=== PATIENT | female | born 1990 | race Caucasian/White ===

== ENCOUNTER 2016-09-03 16:13 | Inpatient (IN) | payer OTHER ==
--- NOTE | ~2016-09-03 | PN ---
Unit #: [id number] #: [id number] Patient: KENYON MIX [id number] [facility] [address] [place] [address] [id number] MR#: [id number] NAME: KENYON MIX ROOM: P212 Age: 25 Sex: F Admission Date: 09/04/2016 : 1990 Attending Physician: Marv Harris M.D. Admitting Physician: Marv Harris M.D. Primary Care Physician: Primary Care Physician Kirti TANG PROGRESS NOTES DATE 09/05/2016 DISCUSSION The patient is abed and appears to be quite ill though she denies abuse of any psychoactive substances which could specifically be causing these issues. We have put her on a CIWA protocol but she has not really been scoring to require any such medication. I have encouraged her to increase her participation within the therapeutic milieu. Dictated by... Marv Harris M.D. CB/susan TD: 09/05/2016 15:47 JOB #: [id number] [facility] PROGRESS NOTES Page 1 of 1 X Marv Harris MD PROGRESS NOTE
--- NOTE | ~2016-09-03 | PA ---
Unit #: [id number] #: [id number] Patient: KENYON MIX [id number] [facility] [address] [place] [address] [id number] I MR#: [id number] NAME: KENYON MIX ROOM: P212 Age: 25 Sex: F Admission Date: 09/04/2016 : 1990 Date of Assessment: 09/04/2016 Attending Physician: Marv Harris M.D. Admitting Physician: Marv Harris M.D. Primary Care Physician: Primary Care Physician No PSYCHIATRIC ASSESSMENT IDENTIFYING INFORMATION The patient is a 25-year-old white female with a history of methamphetamine abuse admitted after she had exhibited bizarre behavior at [facility]. INFORMANT(S) Patient. RELIABILITY Good. CHIEF COMPLAINT None given. HISTORY OF PRESENT ILLNESS The patient is a 25-year-old single white female with a long history of methamphetamine abuse. The patient reports former IV use but reports that she has not used intravenously in some time. She presented at [facility] yesterday and exhibited bizarre behavior complaining that she had "stolen someone else's dope" and was in danger. She was also reporting increasing paranoia. Ten minutes into her evaluation, the patient had eloped from the emergency room and was found by police darting into traffic and she was brought back into the hospital and brought to this facility. When seen today, the patient denies recollection of this episode and is denying suicidal or homicidal ideation but does report increasing paranoia related to her methamphetamine use. She also admits to abuse of illicitly obtained alprazolam. The patient has been homeless secondary to substance use for some time. PAST PSYCHIATRIC HISTORY As above. The patient denies prior chemical dependence or other psychiatric treatment. FAMILY HISTORY The patient denies family history of psychiatric illness or substance abuse. SOCIAL HISTORY The patient is currently homeless. MEDICAL HISTORY Noncontributory. Unit #: [id number] #: [id number] Patient: KENYON MIX MEDICATION HISTORY None. ALLERGIES None. SUBSTANCE ABUSE HISTORY Substance use history as noted previously. MENTAL STATUS EXAM At this time, reveals the patient to be a thin, heavily tattooed white female appearing her stated age. She is in no apparent physical distress at time of examination. She is awake, alert, oriented in all spheres. Her mood is mildly dysphoric. Her affect constricted. Speech is generally relevant and coherent. There are no gross deficits in memory or cognition noted. Intelligence is judged to be in average range based on fund of knowledge. Patient is cooperative throughout the interview. She is currently endorsing no suicidal or homicidal ideation but does report positive paranoid delusional thinking. Her judgement and insight are egregiously impaired. ASSETS AND LIABILITIES Patient's assets to be assessed. Liabilities, lack of resources, homeless. ADMITTING DIAGNOSES 1. 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 2. Sedative/hypnotic use disorder. PSYCHIATRIC PLAN/TREATMENT GOALS The patient remains hospitalized for safety and stabilization. We will initiate CIWA protocol given the patient's admitted abuse of illicitly obtained alprazolam and will watch for signs of psychosis. P.r.n. Zydis will be ordered should the patient exhibit any such symptoms. I will ask a family welfare social work professor to see the patient regarding possible residential chemical dependence treatment following discharge. ESTIMATED LENGTH OF STAY Three to five days. Dictated by... Marv Harris M.D. LEW/susan TD: 09/04/2016 15:14 JOB #: [id number] Unit #: [id number] #: [id number] Patient: KENYON MIX PSYCHIATRIC ASSESSMENT Page 1 of 1 X Marv Harris MD X PSYCHIATRIC ASSESSMENT
--- NOTE | ~2016-09-03 | DS ---
Unit #: [id number] #: [id number] Patient: KENYON MIX [id number] [facility] [address] [place] [address] [id number] I MR#: [id number] NAME: KENYON MIX ROOM: [facility] Age: 25 Sex: F Admission Date: 09/04/2016 : 1990 Discharge Date: 09/06/2016 Attending Physician: Marv Harris M.D. Primary Care Physician: Primary Care Physician No DISCHARGE SUMMARY REASON FOR ADMISSION The patient is a 25-year-old, single, white female, admitted to the [address] [place] [address] unit with increasing abuse of methamphetamine and depressed mood. She also admitted to abuse of illicitly obtained Xanax and had exhibited bizarre behavior after presentation at [facility]. HOSPITAL COURSE The patient was admitted to the [address] [place] [address] unit and placed on routine detoxification protocol for benzodiazepines given her reported abuse of Xanax. Her behavior at this facility was appropriate and she was pleasant and cooperative on interactions with peers and staff, though she did appear to be in significant physical withdrawal when seen on 09/05/2016. By 09/06/2016, the patient was in much brighter spirits. She exhibited absolutely no impairment of judgment, insight, thought or mood and requested discharge and it was so ordered. 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 TREATMENT PLAN The patient remains hospitalized for safety and stabilization. She is agreeable with plan for followup in the chemical dependency intensive outpatient program and discharge will be ordered. PROGNOSIS Good. Dictated by... Marv Harris M.D. LEW/annelise TD: 09/07/2016 05:42 JOB #: [id number] Unit #: [id number] #: [id number] Patient: KNEYON MIX DISCHARGE SUMMARY Page 1 of 1 X Marv Harris MD X DISCHARGE SUMMARY
--- NOTE | ~2016-09-03 | HP ---
Unit #: [id number] #: [id number] Patient: BONITA MIX [id number] [facility] [address] [place] [address] [id number] I MR#: [id number] NAME: BONITA MIX ROOM: P212 Age: 25 Sex: F Admission Date: 09/04/2016 : 1990 Attending Physician: Marv Harris M.D. Admitting Physician: aMrv Harris M.D. Primary Care Physician: Primary Care Physician No HISTORY AND PHYSICAL HISTORY OF PRESENT ILLNESS Bonita is a 25 year old admitted to [address] [place] [address] because of her drug use. She shoots methamphetamine. PAST MEDICAL HISTORY History of illicit substance abuse to include IV meth. PAST SURGICAL HISTORY Cholecystectomy. ALLERGIES No known drug allergies. SOCIAL HISTORY Smokes 1 pack per day. Denies alcohol. Admits to a history of illicit substance abuse to include IV methamphetamine. FAMILY HISTORY Medically noncontributory. REVIEW OF SYSTEMS CONSTITUTIONAL: No fever or chills. HEENT: Denies any sore throat, ear pain or runny nose. CARDIOVASCULAR: Denies chest pain, irregular heart rhythm or palpitations. CHEST: Denies shortness of breath or cough. No hemoptysis. GASTROINTESTINAL: Denies nausea, vomiting, diarrhea or chronic constipation. ENDOCRINE: Denies history of increased thirst or urination. No recent significant weight loss or gain. GENITOURINARY: Denies dysuria, frequency, or hematuria. SKIN: Denies any rashes. HEMATOLOGIC: Denies history of increased bleeding or bruising. MUSCULOSKELETAL: Denies any hot, swollen joints. No generalized muscle pain. NEUROLOGIC: Denies problems with vision or speech. No frequent, severe headaches. No numbness, tingling or weakness in any extremities. Denies loss of bladder or bowel control. CURRENT MEDICATIONS 1. Detox protocol. 2. Benadryl 50 mg q. 8 hours p.r.n. 3. Nicotine patch 14 mg daily. 4. Zyprexa Zydis 10 mg q. 8 hours p.r.n. Unit #: [id number] #: [id number] Patient: BONITA MIX PHYSICAL EXAMINATION GENERAL: Alert, well-nourished, in no apparent distress. VITAL SIGNS: Blood pressure 100/66, heart rate 80, respirations 16, temperature 98.6. WEIGHT: 144. HEIGHT: 5 feet 7 inches. SKIN: Warm and dry without rash or lesion. HEENT: Normocephalic. TMs not viewed. Oral and nasal passages clear. Conjunctivae clear. PERRLA. EOMs intact. NECK: Supple without lymphadenopathy or thyromegaly. HEART: Regular rate and rhythm without murmur. LUNGS: Clear. ABDOMEN: Soft, nontender. : Not done. EXTREMITIES: No evidence of cyanosis, clubbing or edema. Moves all without focal deficit. NEUROLOGICAL: Grossly within normal limits. Cranial Nerves: II: Visual patel are intact. III, IV AND : Extraocular movements are intact. Pupils are equal, round and reactive to light. V: Facial sensation is grossly normal. VII: Facial movements and expression are normal. VIII: Auditory acuity grossly intact. IX, X: Uvula is midline. Phonation is normal. XI: Patient shrugs shoulders and turns head normally. XII: Tongue protrudes in the midline. Sensory and Motor Function: Sensory and motor sensation is grossly normal. Motor: moves all extremities well. Coordination: Gait is normal. Deep Tendon Reflexes: Intact. IMPRESSION Psychiatric admission. RECOMMENDATIONS PSYCHIATRIC: Per psychiatrist. MEDICAL: See no contraindication to participate in facility's activities. MEDICAL PROGNOSIS Good. MEDICAL CONDITION Stable. Dictated by... Angela ValentinoAKhari. for Emory Ortiz/susan TD: 09/04/2016 22:59 JOB #: [id number] Unit #: [id number] #: [id number] Patient: BONITA MIX HISTORY AND PHYSICAL Page 1 of 1 X Sindhu Regalado HISTORY AND PHYSICAL
== END 2016-09-06 15:14 | disposition home or self-care (01) | DRG 897 ==
LOC: P2S 09-04 00:13
PROC: HZ2ZZZZ Detoxification Services for Substance Abuse Treatment (ICD-10-PCS; principal; 2016-09-04)
DX: F15.221 Other stimulant dependence with intoxication delirium (principal); F13.20 Sedative, hypnotic or anxiolytic dependence, uncomplicated; Z59.0 Homelessness; F17.210 Nicotine dependence, cigarettes, uncomplicated
CPT/HCPCS: 84703